=== PATIENT | female | born 1975 ===

== ENCOUNTER 2018-07-28 09:45 | Emergency (ER) | payer OTHER ==
[2018-07-28 09:54] VITALS: RESP 18; O2SAT 100
--- NOTE | 2018-07-28 12:01 | ED PDOC ---
HPI: Abdomen Time Seen by Provider: 07/28/18 10:02 Chief Complaint (Nursing): Abdominal Pain Chief Complaint (Provider): Abodminal pain History Per: Patient History/Exam Limitations: no limitations Onset/Duration Of Symptoms: Persistent Location Of Pain/Discomfort: Epigastric Associated Symptoms: Urinary Symptoms Additional Complaint(s): 43yo female, otherwise well, comes to ER reporting intermittent abdominal pain present for the past 4 months. She states the pain is in her epigastric area, and with associated vomiting and diarrhea. Patient was seen in this ER on 06/28, diagnosed with UTI and prescribed antibiotics; patient completed 5 day course, but states the urinary symptoms are persistent. Otherwise, no fever, chills, chest pain, shortness of breath. No additional complaints. No PMD Past Medical History Reviewed: Historical Data, Nursing Documentation, Vital Signs Vital Signs: Last Vital Signs Temp 98.7 F 07/28/18 09:53 Pulse 68 07/28/18 09:53 Resp 18 07/28/18 09:53 BP 120/72 07/28/18 09:53 Pulse Ox 100 07/28/18 09:53 - Medical History PMH: Gastritis - Surgical History Surgical History: No Surg Hx - Family History Family History: States: No Known Family Hx - Home Medications Home Medications: Ambulatory Orders Medication Instructions Recorded Famotidine [Pepcid] 20 mg PO DAILY PRN #6 tab 07/28/18 Ibuprofen [Motrin] 600 mg PO TID 7 Days tab 07/28/18 Nitrofurantoin Macrocrystals 100 mg PO BID #10 cap 07/28/18 [Macrobid] - Allergies Allergies/Adverse Reactions: Allergies Allergy/AdvReac Type Severity Reaction Status Date / Time No Known Allergies Allergy Verified 07/28/18 10:04 Review of Systems ROS Statement: Except As Marked, All Systems Reviewed And Found Negative Constitutional: Negative for: Fever, Chills Cardiovascular: Negative for: Chest Pain Respiratory: Negative for: Shortness of Breath Gastrointestinal: Positive for: Nausea, Vomiting, Abdominal Pain Genitourinary Female: Positive for: Dysuria, Frequency. Negative for: Hematuria Physical Exam - Reviewed Nursing Documentation Reviewed: Yes Vital Signs Reviewed: Yes - Physical Exam Appears: Positive for: Non-toxic, No Acute Distress Head Exam: Positive for: ATRAUMATIC, NORMAL INSPECTION, NORMOCEPHALIC Skin: Positive for: Normal Color Eye Exam: Positive for: Normal appearance, EOMI, PERRL Neck: Positive for: Normal, Painless ROM, Supple Cardiovascular/Chest: Positive for: Regular Rate, Rhythm. Negative for: Tachycardia Respiratory: Positive for: Normal Breath Sounds. Negative for: Wheezing Pulses-Radial (L): 2+ Pulses-Radial (R): 2+ Gastrointestinal/Abdominal: Positive for: Soft, Tenderness (epigastric). Negative for: Mass, Guarding, Rebound Back: Positive for: Normal Inspection. Negative for: L CVA Tenderness, R CVA Tenderness Extremity: Positive for: Normal ROM Neurologic/Psych: Positive for: Alert, Oriented. Negative for: Motor/Sensory Deficits - Laboratory Results Result Diagrams: 07/28/18 12:15 07/28/18 12:15 Lab Results: urine wbc - ECG O2 Sat by Pulse Oximetry: 100 (RA) Pulse Ox Interpretation: Normal - Progress ED Course And Treament: 1413: Stable. AAOX3. Pain free. Tolerated PO. Fu with pcp. Medical Decision Making Medical Decision Making: Impression: Epigastric pain, urine symptoms Plan: -- Labs -- Urinalysis -- Urine culture -- Pepcid 20mg IV -- Toradol 15mg IV -- IV Fluids Scribe Attestation: Documented by Brenda Collier acting as a scribe for Gregg Rose MD Provider Attestation: All medical record entries made by the Scribe were at my direction and personally dictated by me. I have reviewed the chart and agree that the record accurately reflects my personal performance of the history, physical exam, medical decision making, and the department course for this patient. I have also personally directed, reviewed, and agree with the discharge instructions and disposition. Disposition - Clinical Impression Clinical Impression: Abdominal pain, UTI (urinary tract infection) - Patient ED Disposition Is Patient to be Admitted: No Counseled Patient/Family Regarding: Studies Performed, Diagnosis, Need For Followup, Rx Given - Disposition Referrals: [facility] [Outside] - 08/01/18 Disposition: Routine/Home Disposition Time: 13:00 Condition: STABLE Additional Instructions: Return if not better in 3 days. Prescriptions: Famotidine [Pepcid] 20 mg PO DAILY PRN #6 tab PRN Reason: Pain Ibuprofen [Motrin] 600 mg PO TID 7 Days tab Nitrofurantoin Macrocrystals [Macrobid] 100 mg PO BID #10 cap Instructions: Urinary Tract Infection, Adult (DC), Stomach Ache and Stomach Upset Forms: [facility] (Romanian)
[2018-07-28 12:51] LABS: SQUAMOUS EPITHIAL 2 /hpf (0-5); URINE BACTERIA OCC (<OCC); URINE BILIRUBIN NEGATIVE (NEGATIVE); URINE BLOOD SMALL (NEGATIVE); URINE CLARITY CLOUDY (Clear); URINE COLOR YELLOW (YELLOW); URINE GLUCOSE (UA) NEG (NEGATIVE); URINE LEUKOCYTE ESTERASE MOD Leu/uL (Negative); URINE PROTEIN NEGATIVE (NEGATIVE); URINE UROBILINOGEN 0.2-1.0 mg/dL (0.2-1.0)
[2018-07-28 12:55] LABS: BLOOD UREA NITROGEN 13 mg/dl (7-17); CALCIUM 9.3 mg/dL (8.4-10.2); GFR NON-AFRICAN AMERICAN > 60; LIPASE 59 U/L (23-300)
[2018-07-28] MEDS: Sodium Chloride 0.9% 1,000 ML IV STA (12:57)
[2018-07-28 12:59] LABS: ALB/GLOB RATIO 1.2 (1.0-2.1); ALBUMIN 4.4 g/dL (3.5-5.0); ALT/SGPT 23 U/L (9-52); AST/SGOT 34 U/L (14-36)
[2018-07-28 13:01] LABS: BASO # 0.1 K/uL (0.0-0.2); EOS # 0.2 K/uL (0.0-0.7); EOS % 2.7 % (0.0-4.0); HEMOGLOBIN 13.6 g/dL (12.0-16.0); LYMPH # 2.3 K/uL (1.0-4.3); LYMPH % 30.5 % (20.0-40.0); MEAN CELL VOLUME 85.7 fl (81.0-99.0); MEAN CORPUSCULAR HEMOGLOBIN 28.3 pg (27.0-31.0); MEAN PLATELET VOLUME 10.1 fl (7.2-11.7); MONO # 1.2 K/uL (0.0-0.8); NEUT # 3.8 K/uL (1.8-7.0); NEUT % 49.8 % (50.0-75.0); NRBC % 0.4 % (0.0-0.0); RBC 4.79 Mil/uL (3.80-5.20); RED CELL DISTRIBUTION WIDTH 13.5 % (11.5-14.5)
[2018-07-28 13:07] LABS: PLATELET COUNT 258 K/uL (130-400)
[2018-07-28 13:08] LABS: WHITE BLOOD COUNT 7.5 K/uL (4.8-10.8)
[2018-07-28 14:19] LABS: EOSINOPHIL 3 % (0-7); LYMPHOCYTE 31 % (20-50); MONOCYTE 9 % (0-10); NEUTROPHIL 53 % (42-75); REACTIVE LYMPHOCYTES 4 % (0-0); TOTAL CELLS COUNTED 100
[2018-07-28 14:24] LABS: PLATELET ESTIMATE NORMAL (NORMAL)
[2018-07-28 15:26] VITALS: BP 118/78; PULSE 76; TEMP 98
== END 2018-07-28 15:25 | disposition home or self-care (01) ==
LOC: H.ER 09:45
DX: N39.0 Urinary tract infection, site not specified (principal)
CPT/HCPCS: 80053; 81003; 81025; 83690; 85025; 87086; 87181; 96374; 96375; 99284; J1885; J7030

== ENCOUNTER 2018-09-08 19:32 | Emergency (ER) | payer SELFPAY ==
--- NOTE | 2018-09-08 21:44 | ED PDOC ---
HPI: Headache Time Seen by Provider: 09/08/18 20:30 Chief Complaint (Nursing): Headache Chief Complaint (Provider): Headache History Per: Patient History/Exam Limitations: no limitations Onset/Duration Of Symptoms: Days (2) Current Symptoms Are (Timing): Still Present Severity: Severe Pain Scale Rating Of: 9 Quality: Pressure, "Pain" Preceeding Symptoms: Known Migraine Symptoms Associated Symptoms: Photophobia. denies: Blurred Vision, Nausea, Vomiting, Extremity Weakness, Other Additional History Per: Patient Additional Complaint(s): 43 year old female with a past medical history of migraines and H pylori prese nts to the ED with a headache onset X3 days. Patient reports that she takes amoxicillian, Omeprazole, and chlorothiazide for H pylori. Patient states that she has been having left sided headache radiating to the back of her head for 3 days. Patient has had a cough for over a month. Patient states that she's taken Tylenol with some relief but the headache returns. Patient reports last dose was X6 hours ago. Patient states that headache was the worst today prompting her ED visit. Patient is positive for photophobia. Patient denies dizziness, nausea, and vomiting. PMD: Sandie Valenzuela MD Past Medical History Reviewed: Historical Data, Nursing Documentation, Vital Signs Vital Signs: Last Vital Signs Temp 98.6 F 09/08/18 20:16 Pulse 98 H 09/08/18 20:16 Resp 16 09/08/18 20:16 BP 120/67 09/08/18 20:16 Pulse Ox 100 09/08/18 20:16 МАРИНА Report Viewed: Yes - Medical History PMH: No Chronic Diseases, Gastritis - Surgical History Surgical History: No Surg Hx - Family History Family History: States: No Known Family Hx - Living Arrangements Living Arrangements: Alone - Social History Current smoker - smoking cessation education provided: No Alcohol: None Drugs: Denies - Home Medications Home Medications: Ambulatory Orders Medication Instructions Recorded Famotidine [Pepcid] 20 mg PO DAILY PRN #6 tab 07/28/18 Ibuprofen [Motrin] 600 mg PO TID 7 Days tab 07/28/18 Nitrofurantoin Macrocrystals 100 mg PO BID #10 cap 07/28/18 [Macrobid] Ibuprofen [Motrin] 600 mg PO Q8H PRN #30 tab 09/08/18 - Allergies Allergies/Adverse Reactions: Allergies Allergy/AdvReac Type Severity Reaction Status Date / Time No Known Allergies Allergy Verified 07/28/18 10:04 Review of Systems ROS Statement: Except As Marked, All Systems Reviewed And Found Negative Eyes: Positive for: Other (photophobia) Respiratory: Positive for: Cough Gastrointestinal: Negative for: Nausea, Vomiting Neurological: Positive for: Headache. Negative for: Dizziness Physical Exam - Reviewed Nursing Documentation Reviewed: Yes Vital Signs Reviewed: Yes - Physical Exam Appears: Positive for: Well, Non-toxic, No Acute Distress Head Exam: Positive for: ATRAUMATIC, NORMAL INSPECTION, NORMOCEPHALIC Skin: Positive for: Normal Color, Warm, Dry. Negative for: Rash (redness) Eye Exam: Positive for: Normal appearance, EOMI, PERRL ENT: Positive for: Normal ENT Inspection Neck: Positive for: Normal, Painless ROM, Supple Cardiovascular/Chest: Positive for: Regular Rate, Rhythm. Negative for: Murmur Respiratory: Positive for: Normal Breath Sounds (lungs clear). Negative for: Respiratory Distress Pulses-Radial (L): 2+ Pulses-Radial (R): 2+ Gastrointestinal/Abdominal: Positive for: Normal Exam, Soft. Negative for: Tenderness Back: Negative for: Normal Inspection, L CVA Tenderness, R CVA Tenderness Extremity: Positive for: Normal ROM (upper and lower) Neurological/Psych: Positive for: Awake, Alert, Normal Tone, Oriented, meat market manager II-XII (intact), Other (sensations intact, hypersensitivity to left side head and scalp. ) - Laboratory Results Result Diagrams: 09/08/18 22:04 09/08/18 22:04 Urine POC: Negative - ECG O2 Sat by Pulse Oximetry: 100 (RA) Pulse Ox Interpretation: Normal Medical Decision Making Medical Decision Making: Time 20:42 Initial Impression: Migraine Plan: -Complete metabolic panel -U Preg -CBC with Differential -Reglan 10 mg IVP -Toradol 15 mg IVP -Saline Lock -Urinalysis -re-evaluation 22:30: Patient re-evaluated at this time. Patient states headache has subsided and feels much better. She states she would like to go home. Patient stable for d/c. labs reviewed by me. rx given for motrin 600mg PO. Follow-up with PMD as needed. Given return to ED precautions. Scribe Attestation: Documented by Sanford Glass, acting as a scribe for Flor Burnett APN. Provider Scribe Attestation: All medical record entries made by the Scribe were at my direction and personally dictated by me. I have reviewed the chart and agree that the record accurately reflects my personal performance of the history, physical exam, medical decision making, and the department course for this patient. I have also personally directed, reviewed, and agree with the discharge instructions and disposition. Disposition - Clinical Impression Clinical Impression: Migraine - Patient ED Disposition Is Patient to be Admitted: No Counseled Patient/Family Regarding: Diagnosis - Disposition Disposition: Routine/Home Disposition Time: 22:30 Condition: STABLE Prescriptions: Ibuprofen [Motrin] 600 mg PO Q8H PRN #30 tab PRN Reason: Pain, Moderate (4-7) Instructions: Migraine Headache (DC) Forms: [employer] (Gabonese) Print Language: BULGARIAN Tomas POAgueda Present On Arrival: None
[2018-09-08 22:09] LABS: HEMOGLOBIN 12.6 g/dL (12.0-16.0); MEAN CELL VOLUME 84.8 fl (81.0-99.0); MEAN CORPUSCULAR HEMOGLOBIN 27.8 pg (27.0-31.0); MEAN CORPUSCULAR HGB CONC 32.7 g/dL (33.0-37.0); RBC 4.53 Mil/uL (3.80-5.20); RED CELL DISTRIBUTION WIDTH 14.3 % (11.5-14.5); WHITE BLOOD COUNT 9.7 K/uL (4.8-10.8)
[2018-09-08 22:32] LABS: ALB/GLOB RATIO 1.3 (1.0-2.1); ALBUMIN 4.2 g/dL (3.5-5.0); ALT/SGPT 132 U/L (9-52); AST/SGOT 71 U/L (14-36); BLOOD UREA NITROGEN 9 mg/dl (7-17); CALCIUM 9.2 mg/dL (8.4-10.2); GFR NON-AFRICAN AMERICAN > 60
[2018-09-08 22:34] LABS: SQUAMOUS EPITHIAL 7 /hpf (0-5); URINE BILIRUBIN NEGATIVE (NEGATIVE); URINE BLOOD SMALL (NEGATIVE); URINE CLARITY SLIGHTY-CLOUDY (Clear); URINE COLOR YELLOW (YELLOW); URINE GLUCOSE (UA) NEG (NEGATIVE); URINE LEUKOCYTE ESTERASE NEG Leu/uL (Negative); URINE PROTEIN NEGATIVE (NEGATIVE); URINE UROBILINOGEN 0.2-1.0 mg/dL (0.2-1.0)
[2018-09-08 23:10] VITALS: BP 128/72; PULSE 76; RESP 18; TEMP 98
[2018-09-08 23:11] VITALS: O2SAT 100
== END 2018-09-08 23:09 | disposition home or self-care (01) ==
LOC: H.ER 19:32
DX: G43.909 Migraine, unspecified, not intractable, without status migrainosus (principal)
CPT/HCPCS: 80053; 81003; 81025; 85027; 96374; 96375; 99285; J1885; J2765